=== PATIENT | female | born 1985 | race Caucasian/White ===

== ENCOUNTER 2016-12-03 17:03 | Emergency (ER) | payer OTHER ==
[~2016-12-03 17:03] MED LIST: TYLE3 PO; Z.0.NO CURRENT MEDS
--- NOTE | 2016-12-03 18:08 | PD ---
HPI Chief Complaint leaking fluid Date Seen: Dec 03, 2016 Travel History International Travel<30 Days: No Contact w/Intl Traveler<30Days: No History of Present Illness HPI Patient is a 31-year-old at 37 weeks gestation who presents today for leaking fluid. Leaking fluid started yesterday afternoon and has been happening randomly. She has not noticed an associated with position changes, coughing or laughing. She has been having cramping for the past day but denies any consistent contractions. No vaginal bleeding. Positive movement. care with Dr. Herrera. History Past Medical History Medical History: Denies Significant Hx Obstetric History Obstetric History s/p x 2 at term Past Surgical History Surgical History: No Previous Surgery Family History Family History: Negative Social History Alcohol Use: No Tobacco Use: No Substance Abuse: No Allergies-Medications (Allergen,Severity, Reaction): Coded Allergies: No Known Allergies (Verified , 02/01/08) Home Meds Active Scripts Acetaminophen/Codeine (Tylenol #3)300 Mg/30 Mg Tab1 Tab PO TIDPRN #10 FOR PAIN Prov:Noam Meza MD 10/30/09 Reported Medications Miscellaneous (No Current Meds) Misc Ref 0 10/30/09 Review of Systems Except as stated in HPI: all other systems reviewed are Neg General / Constitutional: No: Fever, Chills Eyes: No: Visual changes HENT: Headaches Cardiovascular: No: Chest Pain or Discomfort Respiratory: No: Cough, Short of Breath Gastrointestinal: No: Nausea, Vomiting Genitourinary: Discharge, No: Dysuria, Hematuria, Vaginal Bleeding Musculoskeletal: Cramping Skin: No Rash Psychiatric: No: Substance Abuse Physical Exam Narrative GENERAL: Well-nourished, well-developed patient. SKIN: Warm and dry. HEAD: Normocephalic and atraumatic. EYES: No scleral icterus. No injection or drainage. ENT: No nasal drainage noted. Mucous membranes pink. Airway patent. NECK: Supple, trachea midline. No JVD. CARDIOVASCULAR: Regular rate and rhythm without murmurs, gallops, or rubs. RESPIRATORY: Breath sounds equal bilaterally. No accessory muscle use. ABDOMEN/GI: Abdomen soft, non-tender, bowel sounds present, no rebound, no guarding Gravid to 37 weeks size GENITOURINARY: External Genitalia: intact and normal in appearance BUS glands: normal Cervix: posterior Dilatation: 3 Effacement: 80% Station: -3 Presentation: vertex Membranes: intact Uterine Contractions: irregular FHT's: Category: I Baseline: 135 Reactive: + Variability: moderate Decels: none EXTREMITIES: No cyanosis or edema. BACK: Nontender without obvious deformity. No CVA tenderness. NEUROLOGICAL: Awake and alert. Motor and sensory grossly within normal limits. Normal speech. Data Data Vital Signs Reviewed: Yes MDM Medical Record Reviewed: Yes Narrative Course / MDM Patient is a at 37 weeks gestation. 1. IUP- Category I tracing, reassuring. Continue routine obstetric care. 2. Possible ROM- Amnisure negative. Discharge to home, follow-up with Dr. Herrera. brittney Aguilar Diagnosis Diagnosis: Primary Impression: Qualified Code: Z3A.37 - 37 weeks gestation of Additional Impression: Encounter for suspected PROM, with rupture of membranes not found Disposition: 01 DISCHARGE HOME Condition: Stable Kavitha Delgado MD R2 Dec 03, 2016 18:08
== END 2016-12-03 18:00 | disposition home or self-care (01) ==
LOC: HOBED 17:03
DX: O62.2 Other uterine inertia (principal); Z3A.37 37 weeks gestation of pregnancy
CPT/HCPCS: 59025; 84112

== ENCOUNTER 2016-12-20 06:15 | Inpatient (IN) | payer OTHER ==
[2016-12-20] VITALS (23 sets, daily range): BP systolic 100–130; BP diastolic 49–98; PULSE 90–109; RESP 18; TEMP 98.2–98.5; O2SAT 97–99
[~2016-12-20] VITALS: Ht 170.2 cm; Wt 94.0 kg
[2016-12-20] MEDS ORDERED: TERBUTALINE INJ 1 MG/ML AMP SQ PRN (07:00)
[2016-12-20] MEDS ORDERED: LACTATED RINGER'S 1000 ML INJ 1,000 ML IV SCH (07:00)
[2016-12-20] MEDS ORDERED: CALNTAB (07:28)
[2016-12-20 07:47] LABS: AUTOMATED NEUTROPHIL # 5.6 TH/MM3 (1.8-7.7); BASOPHIL % 0.4 % (0.0-2.0); EOSINOPHIL # 0.2 TH/MM3 (0-0.4); EOSINOPHIL % 2.3 % (0.0-4.0); HEMO FLAGS DIFF FINAL; LYMPH % 16.1 % (9.0-44.0); LYMPHOCYTE # 1.2 TH/MM3 (1.0-4.8); MEAN CELL VOLUME 85.4 FL (80.0-100.0); MEAN CORPUSCULAR HEMOGLOBIN 29.7 PG (27.0-34.0); MEAN CORPUSCULAR HGB CONC 34.8 % (32.0-36.0); MONO % 7.4 % (0.0-8.0); NEUT % 73.8 % (16.0-70.0); PLATELET COUNT 293 TH/MM3 (150-450); RED BLOOD COUNT 4.33 MIL/MM3 (4.00-5.30); RED CELL DISTRIBUTION WIDTH 14.2 % (11.6-17.2); WHITE BLOOD COUNT 7.6 TH/MM3 (4.0-11.0)
[2016-12-20 08:07] LABS: BACTERIA, URINE OCC /hpf; BLOOD, URINE NEG (NEG); GLUCOSE,URINE NEG (NEG); HYALINE CAST, URINE 1 /lpf (RARE); KETONE, URINE NEG (NEG); NITRITE,URINE NEG (NEG); PH, URINE 6.5 (5.0-8.5); SQUAMOUS EPITHELIAL CELL URINE 4 /hpf (0-5); URINE COLOR LIGHT-YELLOW (YELLW/STRAW)
[2016-12-20 08:19] LABS: COMMENT (UR) CULT NOT INDICATED; CULTURE IF INDICATED CULT NOT INDICATED
[2016-12-20] MEDS ORDERED: OXYTOCIN 30 UNITS-500ML PREMIX 500 ML IV SCH (08:30)
--- NOTE | 2016-12-20 09:59 | PD.LABORPN ---
Subjective Subjective pt resting in bed Objective Vital Signs vss afeb Objective Pelvic Exam: Cervix: [-] Dilatation: [-] 3-4 Effacement: [-] 80 Station: [-] -1 Presentation: [-] Membranes: [intact or ruptured] AROM clear Uterine Contractions: [-] occasional FHT's: Category: [-] 1 Baseline: [-] Reactive: [-] R Variability: [-] Decels: [-] Assessment/Plan Problem List: (1) Assessment and Plan IUP at term, favorable cervix, GBS+ AROM clear, start pitocin, PCN epidural prn anticipate Molly Herrera MD Dec 20, 2016 09:59
[2016-12-20] MEDS ORDERED: PENICILLIN G POTASSIUM INJ 5,000,000 UNITS in SODIUM CHLORIDE 0.9% INJ 100 ML IV ONE (10:00)
[2016-12-20] MEDS ORDERED: CITRIC ACID-SODIUM CITRATE LIQ 30 ML UDC PO SCH (10:00)
[2016-12-20] MEDS ORDERED: fentaNYL 2MCG-BUPIV 0.125% INJ 100 ML ONE (12:44)
[2016-12-20] MEDS ORDERED: ePHEDrine/NS 25 MG/5 ML SYR ONE (12:45)
[2016-12-20] MEDS ORDERED: PENICILLIN G POTASSIUM INJ 2,500,000 UNITS in SODIUM CHLORIDE 0.9% INJ 100 ML IV SCH (14:00)
[2016-12-20] MEDS ORDERED: fentaNYL 2MCG-BUPIV 0.125% INJ 100 ML EPIDURAL SCH (14:00)
[2016-12-20] MEDS ORDERED: NO SYSTEM NARCOTICS XX PRN (14:00)
[2016-12-20] MEDS ORDERED: DO NOT ADMINISTER ANTICOAGULANTS XX PRN (14:00)
[2016-12-20] MEDS ORDERED: ePHEDrine/NS 50 MG/5 ML SYR IV PRN (14:00)
[2016-12-20] MEDS ORDERED: DIPHTH/TETANUS/ACEL PERTUSSIS (BOOSTER) 0.5 ML VIAL/PFS IM ONE (16:00)
[2016-12-20] MEDS ORDERED: MEASLES, MUMPS, RUBELLA VACCINE 0.5 ML VIAL SQ ONE (16:00)
--- NOTE | 2016-12-20 17:08 | PD.OB.DELI ---
Anesthesia: Epidural Episiotomy: None Vaginal Delivery: Normal Presentation: Occiput anterior Infant: Female One Minute : 9 Five Minute : 9 Weight: 7-15 Care: Suctioned Placenta: Spontaneous delivery Laceration: 1 deg Repair: Chromic interrupted (cord around body x1, periurethral laceration) Molly Herrera MD Dec 20, 2016 17:08
[2016-12-20] MEDS ORDERED: ONDANSETRON ODT 4 MG TAB PO PRN (17:15)
[2016-12-20] MEDS ORDERED: SODIUM CHLORIDE 0.9% FLUSH 5 ML FLUSH IV PRN (17:15)
[2016-12-20] MEDS ORDERED: WITCH HAZEL 50%/GLYCERIN 12.5% 40 PAD JAR TOPICAL PRN (17:15)
[2016-12-20] MEDS ORDERED: OXYTOCIN 30 UNITS-500ML PREMIX 500 ML IV ONE (17:15)
[2016-12-20] MEDS ORDERED: ZOLPIDEM TARTRATE 5 MG TAB PO PRN (17:15)
[2016-12-20] MEDS ORDERED: ALUMINUM/MAGNESIUM/SIMETH 30 ML CUP PO PRN (17:15)
[2016-12-20] MEDS ORDERED: BENZOCAINE 20% TOPICAL SPRAY 60 ML CAN TOPICAL PRN (17:15)
[2016-12-20] MEDS ORDERED: DOCUSATE SODIUM 50 MG/SENNA 8.6 MG TAB PO PRN (17:15)
[2016-12-20] MEDS ORDERED: MISOPROSTOL 200 MCG TAB ONE ×2 (17:52→17:54)
[2016-12-20] MEDS ORDERED: METHYLERGONOVINE MALEATE 0.2 MG/ML VIAL ONE (17:55)
[2016-12-20] MEDS ORDERED: OXYTOCIN 10 UNIT/ML AMP ONE (18:32)
[2016-12-20] MEDS ORDERED: OXYTOCIN 30 UNITS-500ML PREMIX 500 ML ONE (18:33)
[2016-12-20] MEDS ORDERED: MORPHINE SULFATE PF 5 MG/10 ML VIAL ONE (18:42)
[2016-12-20] MEDS: SODIUM CHLORIDE 0.9% FLUSH 5 ML FLUSH IV SCH (21:00)
[2016-12-20] MEDS: ACETAMINOPHEN 325 MG TAB PO PRN (21:42)
[2016-12-20] MEDS ORDERED: EPIDURAL-NO SYSTEMIC NARCOTICS XX PRN (23:15)
[2016-12-20] MEDS ORDERED: EPIDURAL-NALOXONE HCL 0.4 MG/ML AMP IV PRN (23:15)
[2016-12-20] MEDS ORDERED: EPIDURAL-DIPHENHYDRAMINE HCL 50 MG/ML VIAL IV PUSH PRN (23:15)
[2016-12-20] MEDS ORDERED: EPIDURAL-DO NOT ADMINISTER ANTICOAGULANTS XX PRN (23:15)
[2016-12-20] MEDS: EPIDURAL-DIPHENHYDRAMINE HCL 50 MG CAP PO PRN (23:19)
[2016-12-20] MEDS: IBUPROFEN 600 MG TAB PO PRN (23:19)
[2016-12-20 23:33] LABS: HEMATOCRIT 31.5 % (35.0-46.0); MEAN CELL VOLUME 85.8 FL (80.0-100.0); MEAN CORPUSCULAR HEMOGLOBIN 29.6 PG (27.0-34.0); MEAN CORPUSCULAR HGB CONC 34.6 % (32.0-36.0); PLATELET COUNT 218 TH/MM3 (150-450); RED BLOOD COUNT 3.67 MIL/MM3 (4.00-5.30); RED CELL DISTRIBUTION WIDTH 14.2 % (11.6-17.2); REVIEW FLAG FINAL; WHITE BLOOD COUNT 12.7 TH/MM3 (4.0-11.0)
[2016-12-21] MEDS: IBUPROFEN 600 MG TAB PO PRN ×3 (05:32→18:08)
[2016-12-21] MEDS: EPIDURAL-DIPHENHYDRAMINE HCL 50 MG CAP PO PRN ×3 (05:33→18:08)
[2016-12-21 07:30] VITALS: BP 109/68; PULSE 95; RESP 17; TEMP 97.9
--- NOTE | 2016-12-21 10:51 | HHI.OB ---
Subjective Post Day: 1 Remarks s/p , D&C for PP hem, doing well, H/H stable Objective Vitals/I&O Vital Signs Date Time Temp Pulse Resp B/P Pulse Ox O2 Delivery O2 Flow Rate FiO2 12/21/16 07:30 97.9 95 17 109/68 12/20/16 20:30 95 111/74 12/20/16 20:30 18 97 12/20/16 20:15 98.4 12/20/16 20:14 98 12/20/16 20:13 95 18 12/20/16 20:13 93 103/49 12/20/16 20:00 93 98 12/20/16 20:00 18 100/54 12/20/16 19:45 99 12/20/16 19:45 112/60 12/20/16 19:44 91 18 12/20/16 19:30 99 12/20/16 19:18 98.5 109 18 12/20/16 19:18 127/98 12/20/16 19:15 127/98 12/20/16 18:10 91 115/67 12/20/16 18:05 98 117/89 12/20/16 18:01 91 119/71 12/20/16 17:58 92 113/97 12/20/16 17:57 97 119/69 12/20/16 17:52 92 126/76 12/20/16 17:37 99 125/62 12/20/16 17:30 18 12/20/16 17:16 98 122/76 12/20/16 17:14 98.2 12/20/16 17:14 18 12/20/16 17:03 100 130/69 12/20/16 17:01 103 113/52 12/20/16 16:45 90 130/80 12/20/16 13:00 18 Objective Remarks GENERAL: Well-nourished, well-developed patient. CARDIOVASCULAR: Regular rate and rhythm without murmurs, gallops, or rubs. RESPIRATORY: Breath sounds equal bilaterally. No accessory muscle use. ABDOMEN/GI: Abdomen soft, non-tender. Fundus: Firm, non-tender at umbilicus. GENITOURINARY: Light to moderate bleeding. packing removed EXTREMITIES: No cyanosis or edema, non-tender, without signs of DVT. Medications and IVs Current Medications Medications (Trade) Dose Ordered Sig/Carlos Route Start Time Stop Time Status Last Admin (NS Flush) 2 ml BID IV 12/20/16 21:00 (NS Flush) 2 ml UNSCH PRN IV 12/20/16 17:15 (Tylenol) 650 mg Q4H PRN PO 12/20/16 17:15 12/20/16 21:42 (Motrin) 600 mg Q6H PRN PO 12/20/16 17:15 12/21/16 05:32 (Americaine 20% Top Spr) 1 spray Q4H PRN TOPICAL 12/20/16 17:15 (Tucks Pads) 1 applic QID PRN TOPICAL 12/20/16 17:15 (Jazmín-Colace) 2 tab Q12H PRN PO 12/20/16 17:15 (Ambien) 5 mg HS PRN PO 12/20/16 17:15 (Mag-Al Plus Susp Liq) 15 ml Q8H PRN PO 12/20/16 17:15 (Zofran Odt) 4 mg Q6H PRN PO 12/20/16 17:15 Miscellaneous Information NO SYSTEMIC NARCOTICS TO BE GIVEN FO... UNSCH PRN XX 12/20/16 23:15 12/21/16 23:14 (Narcan Inj) 0.4 mg UNSCH PRN IV 12/20/16 23:15 12/21/16 23:14 (Benadryl Inj) 25 mg Q6H PRN IV PUSH 12/20/16 23:15 12/21/16 23:14 (Benadryl) 50 mg Q6H PRN PO 12/20/16 23:15 12/21/16 23:14 12/21/16 05:33 Miscellaneous Information ALL NURSING DEPARTMENTS UNSCH PRN XX 12/20/16 23:15 12/21/16 23:14 Assessment/Plan Problem List: (1) (2) hemorrhage Assessment and Plan PPD #1 , D&C packing removed, d/c royal Discharge Planning routine Attending Attestation pt seen by Molly Hsieh MD Dec 21, 2016 10:51
[2016-12-21] MEDS: SODIUM CHLORIDE 0.9% FLUSH 5 ML FLUSH IV SCH (20:28)
[2016-12-22] MEDS: IBUPROFEN 600 MG TAB PO PRN (08:08)
[2016-12-22] MEDS: ACETAMINOPHEN 325 MG TAB PO PRN (08:09)
[2016-12-22 08:20] VITALS: BP 132/81; PULSE 91; RESP 18; TEMP 98.1
--- NOTE | 2016-12-22 08:20 | HHI.DCPOC ---
Discharge Care Plan Diagnosis: (1) (spontaneous vaginal delivery) Your Health Problems Are: Vaginal delivery Report Symptoms to Your Doctor -Temperate above 100.5 degrees -Redness, of incision or excessive or foul smelling drainage -Unusual pain or calf pain -Increased vaginal bleeding -Painful or difficulty urinating -Feelings of extreme sadness or anxiety after 2 weeks Goals to Promote Your Health * To prevent worsening of your condition and complications * To maintain your health at the optimal level Directions to Meet Your Goals Take your medications as prescribed Follow your dietary instruction Follow activity as directed Ensure plenty of rest for recovery Drink fluids for hydration Keep your appointments as scheduled Take your immunizations and boosters as scheduled If your symptoms worsen call your PCP, if no PCP go to Urgent Care Center or Emergency Room Smoking is Dangerous to Your Health. Avoid second hand smoke Call the 24-hour crisis hotline for domestic abuse at Gladys Lundy MD Dec 22, 2016 08:20
[2016-12-22] MEDS: SODIUM CHLORIDE 0.9% FLUSH 5 ML FLUSH IV SCH (09:00)
--- NOTE | 2016-12-22 12:15 | HHI.OB ---
Subjective Post Day: 2 Objective Vitals/I&O Vital Signs Date Time Temp Pulse Resp B/P Pulse Ox O2 Delivery O2 Flow Rate FiO2 12/22/16 08:20 98.1 91 18 12/22/16 08:20 132/81 Objective Remarks GENERAL: Well-nourished, well-developed patient. CARDIOVASCULAR: Regular rate and rhythm without murmurs, gallops, or rubs. RESPIRATORY: Breath sounds equal bilaterally. No accessory muscle use. ABDOMEN/GI: Abdomen soft, non-tender. Fundus: Firm, non-tender at umbilicus. GENITOURINARY: Light bleeding EXTREMITIES: No cyanosis or edema, non-tender, without signs of DVT. Medications and IVs Current Medications Medications (Trade) Dose Ordered Sig/Carlos Route Start Time Stop Time Status Last Admin (NS Flush) 2 ml BID IV 12/20/16 21:00 (NS Flush) 2 ml UNSCH PRN IV 12/20/16 17:15 (Tylenol) 650 mg Q4H PRN PO 12/20/16 17:15 12/22/16 08:09 (Motrin) 600 mg Q6H PRN PO 12/20/16 17:15 12/22/16 08:08 (Americaine 20% Top Spr) 1 spray Q4H PRN TOPICAL 12/20/16 17:15 (Tucks Pads) 1 applic QID PRN TOPICAL 12/20/16 17:15 (Jazmín-Colace) 2 tab Q12H PRN PO 12/20/16 17:15 (Ambien) 5 mg HS PRN PO 12/20/16 17:15 (Mag-Al Plus Susp Liq) 15 ml Q8H PRN PO 12/20/16 17:15 (Zofran Odt) 4 mg Q6H PRN PO 12/20/16 17:15 Assessment/Plan Problem List: (1) (2) hemorrhage Assessment and Plan PPD #2 complicated by PPH & D&C doing well, no symptoms, bleeding light meeting all d/c criteria d/c to home today Discharge Planning routine Gladys Lundy MD Dec 22, 2016 12:15
--- NOTE | 2016-12-23 08:18 | MP ---
cc: NENA HERRERA MD DATE OF SURGERY 12/20/2016 PREOPERATIVE DIAGNOSIS hemorrhage. POSTOPERATIVE DIAGNOSIS hemorrhage. PROCEDURE 1. Examination under anesthesia. 2. Bedside ultrasound. 3. Dilatation and curettage. 4. Repair of cervical laceration. SURGEON Dr. Herrera ANESTHESIA Epidural. FLUIDS 500 cc crystalloid. ESTIMATED BLOOD LOSS 250 cc. URINE OUTPUT 1000 cc clear yellow at the end of the procedure. FINDINGS A small amount of products of conception were noted at D&C. Bedside ultrasound was performed and the endometrial stripe was visualized as well as the horseshoe curette, scraping towards the fundus. The cervix was then carefully examined for lacerations and was noted to be oozing from the posterior lip so several [id number] sutures were placed through the posterior lip of the cervix with 0 Vicryl. Deidre was then applied to the friable cervix. Vaginal packing was placed. All of the instruments were removed from the vagina. The sponge, lap, needle and instrument counts were correct. The patient was transferred to the recovery room in stable condition. MD KIRK Grider/MARISSA /7:16 PM /8:14 AM
--- NOTE | 2016-12-23 08:22 | MH ---
cc: NENA HERRERA MD DATE OF ADMISSION: 12/20/2016 HISTORY OF PRESENT ILLNESS She is 51-[id number], 5, para 2-0-2-2, intrauterine at 39-4/7 weeks with a favorable cervix. care has been with [facility] uncomplicated except for group B strep positive at 35 weeks. PAST OB HISTORY Significant for two vaginal deliveries, one miscarriage and one termination of . 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 PAST MEDICAL HISTORY She denies hypertension, diabetes or asthma. PAST SURGICAL HISTORY She denies. SOCIAL HISTORY She denies. MEDICATIONS She takes vitamins. ALLERGIES She has no known drug allergies. PHYSICAL EXAMINATION VITAL SIGNS: Her vital signs are stable. She is afebrile. Blood pressure is 122/70. She is 209 pounds. HEAD, HEART, CHEST, LUNG: Exams are within normal limits. ABDOMEN: Soft, nontender, gravid. PELVIC: On pelvic exam she is 3 to 4 cm dilated, 50% effaced, zero station, vertex. ASSESSMENT/PLAN She is 55-fvdad-nwc, 5, para 2-0-2-2, intrauterine at 39 and 4/7 weeks with a favorable cervix. She has been counseled about artificial rupture of membranes followed by Pitocin augmentation. Nena Herrera MD CKB/TLL /11:32 AM /8:21 AM
== END 2016-12-22 14:09 | disposition home or self-care (01) | DRG 767 ==
LOC: H2EB 06:15 → H1EA 21:02
PROVIDERS: ADMIT Obstetrics & Gynecology; ATTEND Obstetrics & Gynecology
PROC: 10E0XZZ Delivery of Products of Conception, External Approach (ICD-10-PCS; principal; 2016-12-20)
PROC: 10D17ZZ Extraction of Products of Conception, Retained, Via Natural or Artificial Opening (ICD-10-PCS; 2016-12-20)
PROC: 0UQC7ZZ Repair Cervix, Via Natural or Artificial Opening (ICD-10-PCS; 2016-12-20)
PROC: 0HQ9XZZ Repair Perineum Skin, External Approach (ICD-10-PCS; 2016-12-20)
PROC: 10907ZC Drainage of Amniotic Fluid, Therapeutic from Products of Conception, Via Natural or Artificial Opening (ICD-10-PCS; 2016-12-20)
PROC: 3E033VJ Introduction of Other Hormone into Peripheral Vein, Percutaneous Approach (ICD-10-PCS; 2016-12-20)
PROC: 3E0S3CZ (ICD-10-PCS; 2016-12-20)
PROC: 00HU33Z Insertion of Infusion Device into Spinal Canal, Percutaneous Approach (ICD-10-PCS; 2016-12-20)
DX: O75.89 Other specified complications of labor and delivery (principal); O99.824 Streptococcus B carrier state complicating childbirth; O71.82 Other specified trauma to perineum and vulva; O71.3 Obstetric laceration of cervix; O72.1 Other immediate postpartum hemorrhage; Z37.0 Single live birth; Z3A.39 39 weeks gestation of pregnancy
CPT/HCPCS: 59025; 81001; 85025; 85027; 86900; 86901; 88305; J2210; J2274; J2540; J2590; J3010; J7120; Q0163

== ENCOUNTER 2018-02-25 16:03 | Inpatient (IN) | payer MEDICAID, OTHER ==
[~2018-02-25 16:03] MED LIST changes: +CALNTAB; -TYLE3 PO; -Z.0.NO CURRENT MEDS
[2018-02-25] MEDS ORDERED: ACETAMINOPHEN 325 MG TAB PO ONE ×2 (16:30→18:00)
--- NOTE | 2018-02-25 17:19 | PD.PN.STU ---
Subjective Remarks 32 yo mwf at 35 w 5 d [address] Schroeder's clinic earlier today with decreased movement, fatigue, and overall feeling poorly. She was sent over to L&D to be evaluated. Currently in the [place] she is experiencing contractions every 2-3 minutes and also has horrible nausea and a headache/ feeling of pressure in her head. No vaginal bleeding or loss of fluid. She has a history of 3 SVDs, with the last resulting in hemorrhage and an emergency D&C. Pregnancies were otherwise uncomplicated. Objective Objective Remarks GENERAL: Well-nourished, well-developed patient. CARDIOVASCULAR: Regular rate and rhythm without murmurs, gallops, or rubs. RESPIRATORY: Breath sounds equal bilaterally. No accessory muscle use. ABDOMEN/GI: Abdomen soft, non-tender. Fundus: [34 cm] GENITOURINARY: External Genitalia: intact and normal in appearance 4/90/-1 category 1 strip EFW 6 pounds pelvis proven EXTREMITIES: No cyanosis or edema, non-tender, without signs of DVT. A/P Assessment and Plan 32 yo mwf at 35w 5d sent over to L&D from clinic for decreased movement 1. Decreased movement: Strip is reassuring 2. Cervix 4cm dilated with contractions: Plan to admit for observation. Plan to start betamethasone for lung maturity development 3. Elevated blood pressures during : Labs to rule out preeclampsia including CBC, metabolic profile, uric acid, protein to creatinine ratio re evaluate in the morning Leonor Calvin Feb 25, 2018 17:19 Maya Schroeder MD Feb 25, 2018 18:32
[2018-02-25 17:28] VITALS: BP 132/83; PULSE 110
[2018-02-25] MEDS: BETAMETHASONE SOD PHOS/ACETATE SUSP 30 MG/5 ML VIAL IM SCH (17:30)
--- NOTE | 2018-02-25 17:41 | PD ---
HPI Chief Complaint decreased FM Date Seen: Feb 25, 2018 Time Seen: 17:18 Travel History International Travel<30 Days: No Contact w/Intl Traveler<30Days: No Known Affected Area: No History of Present Illness HPI Pt is a 32y/o @ 35.5wks. She has PNC with Dr. Schroeder. She was seen in clinic today and reported decr FM. She was sent in for evaluation. Since arrival, she reports feeling LOF. No VB. +ctx. She also reports a ALVAREZ. Weeks Gestation: 35 Para: 3 : 5 History Past Medical History Medical History: Denies Significant Hx Obstetric History Obstetric History x3 (required D&C 2' to PPH with last delivery) SAB x1 Past Surgical History Narrative Surgical D&C Family History Family History: Negative Social History Alcohol Use: No Tobacco Use: No Substance Abuse: No Allergies-Medications (Allergen,Severity, Reaction): Coded Allergies: No Known Allergies (Verified , 12/20/16) Home Meds Reported Medications Vitamin (Calna) 1 Tab Tab 12/20/16 Review of Systems Except as stated in HPI: all other systems reviewed are Neg Physical Exam Narrative General: well developed, well nourished, no acute distress HEENT: normocephalic atraumatic, extraocular movements intact, neck supple Abdomen: soft, gravid, nontender, nondistended Uterus: fundus above umbilicus Extremities: full range of motion Skin: normal coloration, no rashes, no suspicious skin lesions noted Neurologic: cranial nerves 2-12 grossly intact, normal muscle tone, normal gait Psychiatric: normal mood and affect, appropriate FHTs: 135s, +accels, no decels, moderate variability, reactive [place]: irregular ctx Cvx: 4cm in clinic Data Data Vital Signs Reviewed: Yes Orders Orders Acetaminophen (Tylenol) (02/25/18 16:30) Vital Signs (Adult) .ON ADMISSION (02/25/18 17:18) ^ Labor Status (02/25/18 17:18) Urinalysis - C+S If Indicated (02/25/18 17:18) ^ Non Stress Test (02/25/18 17:18) Cbc No Diff, Includes Plts (02/25/18 17:18) Comprehensive Metabolic Panel (02/25/18 17:18) Uric Acid (02/25/18 17:18) Betamethasone Inj ([place] Soluspan In (02/25/18 17:30) Protein Creat Ratio, Random Ur (02/25/18 17:19) MDM Plan 32y/o @ 35.5wks with 1. decr FM -- NST reactive 2. elevated BPs / ALVAREZ -- PIH labs ordered 3. cervical dilation -- obs on APU -- BMZ x2 Dispo: Dr. Schroeder requests pt to be observed on APU. Pt aware of plan of care. Courtesy orders placed. Diagnosis Diagnosis: Primary Impression: 35 weeks gestation of Additional Impressions: Elevated blood pressure affecting in third trimester, antepartum Amniotic fluid leaking Premature cervical dilation in third trimester Derrick Stewart MD Feb 25, 2018 17:41
[2018-02-25] MEDS ORDERED: ZOLPIDEM TARTRATE 5 MG TAB PO PRN (17:45)
[2018-02-25] MEDS ORDERED: SODIUM CHLORIDE 0.9% FLUSH 10 ML FLUSH IV FLUSH PRN (17:45)
[2018-02-25] MEDS ORDERED: ONDANSETRON ODT 4 MG TAB PO PRN (17:45)
[2018-02-25] MEDS ORDERED: ACETAMINOPHEN 325 MG TAB PO PRN (17:45)
[2018-02-25 18:29] LABS: HEMATOCRIT 37.5 % (35.0-46.0); HEMOGLOBIN 12.9 GM/DL (11.6-15.3); MEAN CELL VOLUME 84.8 FL (80.0-100.0); MEAN CORPUSCULAR HEMOGLOBIN 29.1 PG (27.0-34.0); MEAN CORPUSCULAR HGB CONC 34.4 % (32.0-36.0); MEAN PLATELET VOLUME 7.5 FL (7.0-11.0); PLATELET COUNT 291 TH/MM3 (150-450); RED BLOOD COUNT 4.42 MIL/MM3 (4.00-5.30); RED CELL DISTRIBUTION WIDTH 14.5 % (11.6-17.2); WHITE BLOOD COUNT 8.9 TH/MM3 (4.0-11.0)
[2018-02-25 18:32] LABS: ALBUMIN 2.8 GM/DL (3.4-5.0); ALT (GPT) 19 U/L (10-53); AST (GOT) 17 U/L (15-37); BICARBONATE 21.4 MEQ/L (21.0-32.0); BLOOD UREA NITROGEN 8 MG/DL (7-18); CALCIUM 8.9 MG/DL (8.5-10.1); CHLORIDE 110 MEQ/L (98-107); CREATININE 0.77 MG/DL (0.50-1.00); GLOMERULAR FILTRATION RATE 87 ML/MIN (>89); GLUCOSE,RANDOM 93 MG/DL (74-106); SODIUM (NA) 140 MEQ/L (136-145)
[2018-02-25 18:34] LABS: BACTERIA, URINE OCC /hpf; BILIRUBIN, URINE NEG (NEG); BLOOD, URINE TRACE (NEG); GLUCOSE,URINE 70 mg/dL (NEG); KETONE, URINE 40 mg/dL (NEG); MUCUS URINE MOD /lpf (OCC); NITRITE,URINE NEG (NEG); PH, URINE 6.5 (5.0-8.5); SQUAMOUS EPITHELIAL CELL URINE 2 /hpf (0-5); URINE COLOR YELLOW (YELLW/STRAW); URINE LEUKOCYTE ESTERASE SMALL (NEG)
[2018-02-25 18:35] LABS: ALKALINE PHOSPHATASE 122 U/L (45-117); TOTAL BILIRUBIN ADULT 0.3 MG/DL (0.2-1.0); TOTAL PROTEIN 7.1 GM/DL (6.4-8.2)
[2018-02-25 20:15] VITALS: BP 113/66; PULSE 99; RESP 18; TEMP 98.1
[2018-02-25] MEDS ORDERED: SODIUM CHLORIDE 0.9% FLUSH 10 ML FLUSH IV FLUSH SCH (21:00)
[2018-02-25] MEDS ORDERED: ACETAMIN 325 MG/BUTALBITAL 50 MG/CAFFEINE 40 MG TAB PO ONE (21:30)
[2018-02-25 23:42] VITALS: BP 128/70; PULSE 104
[2018-02-26] VITALS (55 sets, daily range): BP systolic 91–159; BP diastolic 48–96; PULSE 68–155; RESP 16–20; TEMP 97.7–98.8; O2SAT 96
[2018-02-26] MEDS ORDERED: OXYTOCIN 30 UNITS-500ML PREMIX 500 ML IV PRN (05:00)
--- NOTE | 2018-02-26 05:00 | PD.OB.ANTE ---
Subjective Interval History Complaining of severe headache with pressure and inability to lay down flat without making it worse this is despite foricet can't sleep ghulam regularly Objective Vital Signs Vital Signs Date Time Temp Pulse Resp B/P (MAP) Pulse Ox O2 Delivery O2 Flow Rate FiO2 02/25/18 23:42 104 128/70 (89) 02/25/18 20:15 99 113/66 (82) 02/25/18 20:15 98.1 18 02/25/18 17:28 110 132/83 (99) Lab & Micro Results Test 02/25/18 17:45 02/25/18 17:50 Urine Color YELLOW Urine Turbidity HAZY Urine pH 6.5 Urine Specific [place] 1.025 Urine Protein 30 mg/dL Urine Glucose (UA) 70 mg/dL Urine Ketones 40 mg/dL Urine Occult Blood TRACE Urine Nitrite NEG Urine Bilirubin NEG Urine Urobilinogen LESS THAN 2.0 MG/DL Urine Leukocyte Esterase SMALL Urine RBC 4 /hpf Urine WBC 6 /hpf Urine Squamous Epithelial Cells 2 /hpf Urine Bacteria OCC /hpf Urine Mucus MOD /lpf Microscopic Urinalysis Comment CULT NOT INDICATED Urine Random Creatinine 203 MG/DL Urine Random Total Protein 28 MG/DL Urine Protein/Creatinine Ratio 0.14 White Blood Count 8.9 TH/MM3 Red Blood Count 4.42 MIL/MM3 Hemoglobin 12.9 GM/DL Hematocrit 37.5 % Mean Corpuscular Volume 84.8 FL Mean Corpuscular Hemoglobin 29.1 PG Mean Corpuscular Hemoglobin Concent 34.4 % Red Cell Distribution Width 14.5 % Platelet Count 291 TH/MM3 Mean Platelet Volume 7.5 FL Blood Urea Nitrogen 8 MG/DL Creatinine 0.77 MG/DL Random Glucose 93 MG/DL Total Protein 7.1 GM/DL Albumin 2.8 GM/DL Calcium Level 8.9 MG/DL Uric Acid 4.0 MG/DL Alkaline Phosphatase 122 U/L Aspartate Amino Transf (AST/SGOT) 17 U/L Alanine Aminotransferase (ALT/SGPT) 19 U/L Total Bilirubin 0.3 MG/DL Sodium Level 140 MEQ/L Potassium Level 3.7 MEQ/L Chloride Level 110 MEQ/L Carbon Dioxide Level 21.4 MEQ/L Anion Gap 9 MEQ/L Estimat Glomerular Filtration Rate 87 ML/MIN Physical Exam GENERAL: Well-nourished, well-developed patient. CARDIOVASCULAR: Regular rate and rhythm without murmurs, gallops, or rubs. RESPIRATORY: Breath sounds equal bilaterally. No accessory muscle use. ABDOMEN/GI: Abdomen soft, non-tender. 36 category 1 50%/5-6/BBOW with contraction; otherwise ballotable vertex EFW 6 pounds pelvis proven EXTREMITIES: No cyanosis minimal edema, non-tender, without signs of DVT. Assessment and Plan Assessment and Plan entering active labor reason for early labor unclear but mom more anxious, uncomfortble and convinced of something of concern- has had three term babies not feeling like this will move to labor side and AROM Maya Schroeder MD Feb 26, 2018 04:59
[2018-02-26] MEDS ORDERED: LACTATED RINGER'S 1000 ML INJ 1,000 ML IV SCH (05:08)
[2018-02-26] MEDS ORDERED: LACTATED RINGER'S 1000 ML INJ 1,000 ML IV PRN (05:08)
[2018-02-26] MEDS ORDERED: MINERAL OIL 10 ML VIAL TOPICAL PRN (05:15)
[2018-02-26] MEDS ORDERED: LIDOCAINE HCL 1% 50 ML VIAL INFIL PRN (05:15)
[2018-02-26] MEDS ORDERED: ONDANSETRON HCL 4 MG/2 ML VIAL IV PUSH PRN (05:15)
[2018-02-26] MEDS ORDERED: CITRIC ACID-SODIUM CITRATE LIQ 30 ML UDC PO SCH (05:15)
[2018-02-26] MEDS ORDERED: OXYTOCIN 30 UNITS-500ML PREMIX 500 ML IV ONE (05:15)
[2018-02-26] MEDS ORDERED: SODIUM CHLORID 0.9% 500 ML INJ 500 ML IV PRN (05:15)
[2018-02-26] MEDS ORDERED: LIDOCAINE HCL 1% 50 ML VIAL I-DERMAL PRN (05:15)
[2018-02-26] MEDS ORDERED: SODIUM CHLOR 0.9% 1000 ML INJ 1,000 ML IV PRN (05:28)
[2018-02-26] MEDS: BETAMETHASONE SOD PHOS/ACETATE SUSP 30 MG/5 ML VIAL IM SCH (06:26)
--- NOTE | 2018-02-26 07:34 | PD.LABORPN ---
Subjective Subjective not painful but feeling rectal pressure Objective Vital Signs Vital Signs Date Time Temp Pulse Resp B/P (MAP) Pulse Ox O2 Delivery O2 Flow Rate FiO2 02/26/18 06:30 18 02/26/18 06:27 18 02/26/18 05:30 98.7 20 02/26/18 05:23 110 141/95 (110) 02/25/18 23:42 104 128/70 (89) Objective 6/80/-1 strip category 1 Weeks Gestation: 35 Gest Age Assessed Date: Feb 26, 2018 Gest Age Assessed Time: 07:34 Medical induction of labor?: No Artificial rupture of membrane: Yes Artificial ROM date: Feb 26, 2018 Artifical ROM time: 05:00 Assessment/Plan Assessment and Plan ancef since premature anticipate Maya Enriquez MD Feb 26, 2018 07:34
[2018-02-26 11:41] LABS: AUTOMATED NEUTROPHIL # 12.8 TH/MM3 (1.8-7.7); BASOPHIL % 0.2 % (0.0-2.0); HEMATOCRIT 38.1 % (35.0-46.0); HEMOGLOBIN 12.9 GM/DL (11.6-15.3); LYMPH % 5.6 % (9.0-44.0); LYMPHOCYTE # 0.8 TH/MM3 (1.0-4.8); MEAN CELL VOLUME 84.7 FL (80.0-100.0); MEAN CORPUSCULAR HEMOGLOBIN 28.6 PG (27.0-34.0); MEAN CORPUSCULAR HGB CONC 33.8 % (32.0-36.0); MEAN PLATELET VOLUME 7.5 FL (7.0-11.0); MONO % 1.6 % (0.0-8.0); MONOCYTE # 0.2 TH/MM3 (0-0.9); NEUT % 92.6 % (16.0-70.0); PLATELET COUNT 296 TH/MM3 (150-450); RED BLOOD COUNT 4.49 MIL/MM3 (4.00-5.30); RED CELL DISTRIBUTION WIDTH 14.2 % (11.6-17.2); WHITE BLOOD COUNT 13.8 TH/MM3 (4.0-11.0)
[2018-02-26] MEDS ORDERED: fentaNYL 2MCG-BUPIV 0.125% INJ 100 ML ONE (11:55)
[2018-02-26] MEDS ORDERED: ePHEDrine/NS 25 MG/5 ML SYRINGE ONE (11:56)
[2018-02-26] MEDS ORDERED: DO NOT ADMINISTER ANTICOAGULANTS PRN (13:00)
[2018-02-26] MEDS ORDERED: ePHEDrine/NS 25 MG/5 ML SYRINGE IV PUSH PRN (13:00)
[2018-02-26] MEDS ORDERED: fentaNYL 2MCG-BUPIV 0.125% 100 ML EPIDURAL SCH (13:00)
[2018-02-26] MEDS ORDERED: NO SYSTEM NARCOTICS PRN (13:00)
[2018-02-26] MEDS ORDERED: MEASLES, MUMPS, RUBELLA VACCINE 0.5 ML VIAL SQ ONE (16:00)
[2018-02-26] MEDS ORDERED: DIPHTH/TETANUS/ACEL PERTUSSIS (BOOSTER) 0.5 ML VIAL/PFS IM ONE (16:00)
--- NOTE | 2018-02-26 16:06 | PD.OB.DELI ---
Weeks gestation: 35 Gest age assessed date: Feb 26, 2018 Gest age assessed time: 07:34 Pt started active labor?: Yes Medical induction of labor?: No Artificial rupture of membrane: Yes Artificial ROM date: Feb 26, 2018 Artifical ROM time: 05:00 Anesthesia: Epidural Episiotomy: None Vaginal Delivery: Normal Presentation: Occiput anterior Nuchal Cord: x1 Delayed cord clamping (45 sec): Yes Infant: Male Delivery date: Feb 26, 2018 Delivery time: 16:04 One Minute : 8 Five Minute : 9 Placenta: Spontaneous delivery, Other (accessory placental lobe with velamentous insertion and free cord in membranes) Laceration: No lacerations Estimated blood loss: 200 Maya Schroeder MD Feb 26, 2018 16:06
[2018-02-26] MEDS ORDERED: ACETAMINOPHEN 325 MG TAB PO PRN (16:15)
[2018-02-26] MEDS ORDERED: BENZOCAINE 20% TOPICAL SPRAY 60 ML CAN TOPICAL PRN (16:15)
[2018-02-26] MEDS ORDERED: ONDANSETRON ODT 4 MG TAB PO PRN (16:15)
[2018-02-26] MEDS ORDERED: DOCUSATE SODIUM 50 MG/SENNA 8.6 MG TAB PO PRN (16:15)
[2018-02-26] MEDS ORDERED: OXYTOCIN 30 UNITS-500ML PREMIX 500 ML IV SCH (16:15)
[2018-02-26] MEDS ORDERED: ZOLPIDEM TARTRATE 5 MG TAB PO PRN (16:15)
[2018-02-26] MEDS ORDERED: IBUPROFEN 800 MG TAB PO PRN (16:15)
[2018-02-26] MEDS ORDERED: SODIUM CHLORIDE 0.9% FLUSH 10 ML FLUSH IV FLUSH PRN (16:15)
[2018-02-26] MEDS ORDERED: WITCH HAZEL 50%/GLYCERIN 12.5% 40 PAD JAR TOPICAL PRN (16:15)
[2018-02-26] MEDS ORDERED: ALUMINUM/MAGNESIUM/SIMETH 30 ML CUP PO PRN (16:15)
[2018-02-26] MEDS ORDERED: SODIUM CHLORIDE 0.9% FLUSH 10 ML FLUSH IV FLUSH SCH (21:00)
[2018-02-27 06:00] VITALS: BP 137/69; PULSE 89; RESP 18; TEMP 98.1; O2SAT 96
[2018-02-27] MEDS: MULTIVIT/MIN/PREN/FOL AC/IRON PRENATAL TAB PO SCH (09:00)
[2018-02-27 21:00] VITALS: BP 120/83; PULSE 61; RESP 18; TEMP 98; O2SAT 97
--- NOTE | 2018-02-27 21:04 | HHI.OB ---
Subjective Post Day: 1 Remarks Doing well pain is controlled Baby is in the NICU but doing well Bleeding is normal Objective Vitals/I&O Vital Signs Date Time Temp Pulse Resp B/P (MAP) Pulse Ox O2 Delivery O2 Flow Rate FiO2 02/27/18 06:00 98.1 89 18 137/69 (91) 96 02/26/18 22:00 98.4 68 18 129/79 (96) 96 Objective Remarks GENERAL: Well-nourished, well-developed patient. CARDIOVASCULAR: Regular rate and rhythm without murmurs, gallops, or rubs. RESPIRATORY: Breath sounds equal bilaterally. No accessory muscle use. ABDOMEN/GI: Abdomen soft, non-tender. Fundus: Firm, non-tender at umbilicus. GENITOURINARY: Light to moderate bleeding. EXTREMITIES: No cyanosis or edema, non-tender, without signs of DVT. Medications and IVs Current Medications Medications (Trade) Dose Ordered Sig/Carlos Route Start Time Stop Time Status Last Admin (Stuartnatal Plus 3 ) 1 tab DAILY PO 02/26/18 09:00 (NS Flush) 2 ml BID IV FLUSH 02/25/18 21:00 02/25/18 21:00 (NS Flush) 2 ml UNSCH PRN IV FLUSH 02/25/18 17:45 (Ambien) 5 mg HS PRN PO 02/25/18 17:45 (Zofran Odt) 4 mg Q6H PRN PO 02/25/18 17:45 Oxytocin 500 ml @ 0 mls/hr TITRATE PRN IV 02/26/18 05:00 02/26/18 09:41 Lactated Ringer's 1,000 ml @ 125 mls/hr Q8H IV 02/26/18 05:08 02/26/18 06:27 Lactated Ringer's 1,000 ml @ 3,000 mls/hr Q20M PRN IV 02/26/18 05:08 Sodium Chloride 1,000 ml @ 100 mls/hr Q10H PRN IV 02/26/18 05:28 (Xylocaine 1% Inj (50 ml)) 0.1 ml UNSCH X1 PRN I-DERMAL 02/26/18 05:15 03/01/18 05:14 (Bicitra Liq) 30 ml ALTERATION INSPECTOR PO 02/26/18 05:15 03/02/18 05:14 02/26/18 14:13 (Zofran Inj) 4 mg Q6H PRN IV PUSH 02/26/18 05:15 (fentaNYL INJ) 100 mcg Q1H PRN IV PUSH 02/26/18 05:15 (Xylocaine 1% Inj (50 ml)) 10 ml UNSCH X1 PRN INFIL 02/26/18 05:15 02/28/18 05:14 (Muri-Lube Oil) 10 ml UNSCH PRN TOPICAL 02/26/18 05:15 Fentanyl/ Bupivacaine HCl 100 ml @ 0 mls/hr TITRATE EPIDURAL 02/26/18 13:00 (NS Flush) 2 ml BID IV FLUSH 02/26/18 21:00 (NS Flush) 2 ml UNSCH PRN IV FLUSH 02/26/18 16:15 (Tylenol) 650 mg Q4H PRN PO 02/26/18 16:15 (Motrin) 800 mg Q8H PRN PO 02/26/18 16:15 02/26/18 18:26 (Americaine 20% Top Spr) 1 spray Q4H PRN TOPICAL 02/26/18 16:15 (Tucks Pads) 1 applic QID PRN TOPICAL 02/26/18 16:15 (Jazmín-Colace) 2 tab Q12H PRN PO 02/26/18 16:15 (Ambien) 5 mg HS PRN PO 02/26/18 16:15 (Mag-Al Plus Susp Liq) 15 ml Q8H PRN PO 02/26/18 16:15 (Zofran Odt) 4 mg Q6H PRN PO 02/26/18 16:15 Assessment/Plan Assessment and Plan PPD #1 Doing well Routine care Lives in [place] so she may need stay close quarters Levar Santiago MD Feb 27, 2018 21:04
[2018-02-28 09:20] VITALS: BP 125/81; PULSE 76; RESP 17; TEMP 98
[2018-02-28] MEDS: MULTIVIT/MIN/PREN/FOL AC/IRON PRENATAL TAB PO SCH (09:31)
--- NOTE | 2018-02-28 14:12 | HHI.DCPOC ---
Discharge Care Plan Diagnosis: (1) (spontaneous vaginal delivery) Report Symptoms to Your Doctor -Temperature above 100.5 degrees -Redness, of incision or excessive or foul smelling drainage -Unusual pain or calf pain -Increased vaginal bleeding -Painful or difficulty urinating -Feelings of extreme sadness or anxiety after 2 weeks Goals to Promote Your Health * To prevent worsening of your condition and complications * To maintain your health at the optimal level Directions to Meet Your Goals Take your medications as prescribed Follow your dietary instruction Follow activity as directed Ensure plenty of rest for recovery Drink fluids for hydration Keep your appointments as scheduled Take your immunizations and boosters as scheduled If your symptoms worsen call your PCP, if no PCP go to Urgent Care Center or Emergency Room Smoking is Dangerous to Your Health. Avoid second hand smoke Call the 24-hour crisis hotline for domestic abuse at Levar Santiago MD Feb 28, 2018 14:12
--- NOTE | 2018-02-28 14:21 | HHI.OB ---
Subjective Post Day: 2 Remarks Doing well baby is doing much better, May be able to go home Thursday. Bleeding is minimal Objective Vitals/I&O Vital Signs Date Time Temp Pulse Resp B/P (MAP) Pulse Ox O2 Delivery O2 Flow Rate FiO2 02/28/18 09:20 125/81 (96) 02/28/18 09:20 98.0 76 17 02/27/18 21:00 98.0 02/27/18 21:00 61 18 120/83 (95) 97 Objective Remarks GENERAL: Well-nourished, well-developed patient. CARDIOVASCULAR: Regular rate and rhythm without murmurs, gallops, or rubs. RESPIRATORY: Breath sounds equal bilaterally. No accessory muscle use. ABDOMEN/GI: Abdomen soft, non-tender. Fundus: Firm, non-tender at umbilicus. GENITOURINARY: Light to moderate bleeding. EXTREMITIES: No cyanosis or edema, non-tender, without signs of DVT. Medications and IVs Current Medications Medications (Trade) Dose Ordered Sig/Carlos Route Start Time Stop Time Status Last Admin (Stuartnatal Plus 3 ) 1 tab DAILY PO 02/26/18 09:00 02/28/18 09:31 (NS Flush) 2 ml BID IV FLUSH 02/25/18 21:00 02/25/18 21:00 (NS Flush) 2 ml UNSCH PRN IV FLUSH 02/25/18 17:45 (Ambien) 5 mg HS PRN PO 02/25/18 17:45 (Zofran Odt) 4 mg Q6H PRN PO 02/25/18 17:45 Oxytocin 500 ml @ 0 mls/hr TITRATE PRN IV 02/26/18 05:00 02/26/18 09:41 Lactated Ringer's 1,000 ml @ 125 mls/hr Q8H IV 02/26/18 05:08 02/26/18 06:27 Lactated Ringer's 1,000 ml @ 3,000 mls/hr Q20M PRN IV 02/26/18 05:08 Sodium Chloride 1,000 ml @ 100 mls/hr Q10H PRN IV 02/26/18 05:28 (Xylocaine 1% Inj (50 ml)) 0.1 ml UNSCH X1 PRN I-DERMAL 02/26/18 05:15 03/01/18 05:14 (Bicitra Liq) 30 ml [employer] PO 02/26/18 05:15 03/02/18 05:14 02/26/18 14:13 (Zofran Inj) 4 mg Q6H PRN IV PUSH 02/26/18 05:15 (fentaNYL INJ) 100 mcg Q1H PRN IV PUSH 02/26/18 05:15 (Muri-Lube Oil) 10 ml UNSCH PRN TOPICAL 02/26/18 05:15 Fentanyl/ Bupivacaine HCl 100 ml @ 0 mls/hr TITRATE EPIDURAL 02/26/18 13:00 (NS Flush) 2 ml BID IV FLUSH 02/26/18 21:00 (NS Flush) 2 ml UNSCH PRN IV FLUSH 02/26/18 16:15 (Tylenol) 650 mg Q4H PRN PO 02/26/18 16:15 (Motrin) 800 mg Q8H PRN PO 02/26/18 16:15 02/26/18 18:26 (Americaine 20% Top Spr) 1 spray Q4H PRN TOPICAL 02/26/18 16:15 (Tucks Pads) 1 applic QID PRN TOPICAL 02/26/18 16:15 (Jazmín-Colace) 2 tab Q12H PRN PO 02/26/18 16:15 (Ambien) 5 mg HS PRN PO 02/26/18 16:15 (Mag-Al Plus Susp Liq) 15 ml Q8H PRN PO 02/26/18 16:15 (Zofran Odt) 4 mg Q6H PRN PO 02/26/18 16:15 Assessment/Plan Assessment and Plan PPD #2 Doing well Routine care She has stay close quarters. Levar Santiago MD Feb 28, 2018 14:21
== END 2018-02-28 15:11 | disposition home or self-care (01) | DRG 775 ==
LOC: HOBED 16:03 → H2EA 17:40 → H2EB 02-26 05:00 → OBSVTOIN 02-26 05:10 → H1EA 02-26 17:43
PROVIDERS: ADMIT Obstetrics & Gynecology; ATTEND Obstetrics & Gynecology
PROC: 10E0XZZ Delivery of Products of Conception, External Approach (ICD-10-PCS; principal; 2018-02-26)
PROC: 00HU33Z Insertion of Infusion Device into Spinal Canal, Percutaneous Approach (ICD-10-PCS; 2018-02-26)
PROC: 3E0R3BZ Introduction of Anesthetic Agent into Spinal Canal, Percutaneous Approach (ICD-10-PCS; 2018-02-26)
PROC: 10907ZC Drainage of Amniotic Fluid, Therapeutic from Products of Conception, Via Natural or Artificial Opening (ICD-10-PCS; 2018-02-26)
DX: O26.893 Other specified pregnancy related conditions, third trimester (principal); R03.0 Elevated blood-pressure reading, without diagnosis of hypertension; O36.8130 Decreased fetal movements, third trimester, not applicable or unspecified; Z37.0 Single live birth; Z3A.35 35 weeks gestation of pregnancy; O69.81X0 Labor and delivery complicated by cord around neck, without compression, not applicable or unspecified
CPT/HCPCS: 80053; 80307; 81001; 82570; 84112; 84156; 84550; 85025; 85027; 96372; G0378; G0481; J0690; J0702; J2590; J7120